=== PATIENT | female | born 1960 | race Caucasian/White ===

== ENCOUNTER 2020-10-26 15:47 | Inpatient (IN) ==
[2020-10-26] MEDS ORDERED: ONDANSETRON 4 MG/2 ML VIAL IV PRN (18:11)
[2020-10-26] MEDS ORDERED: DOCUSATE SODIUM 100 MG CAPSULE PO PRN (18:11)
[2020-10-26] MEDS ORDERED: DEXTROSE 50% 25 GM/50 ML VIAL IV PRN (18:11)
[2020-10-26] MEDS ORDERED: BISACODYL 5 MG TABLET PO PRN (18:11)
[2020-10-26] MEDS ORDERED: GLUCAGON 1 MG VIAL IM PRN (18:11)
[2020-10-26] MEDS ORDERED: SODIUM CHLORIDE 0.9% 1,000 ML IV PRN (18:18)
[2020-10-26] MEDS ORDERED: POLYETHYLENE GLYCOL POWDER 17 GM PACK PO PRN (18:31)
[2020-10-26] MEDS: cefTRIAXone 1,000 MG in SODIUM CHLORIDE 0.9% 100 ML IV SCH (18:45)
[2020-10-26 18:51] LABS: Basophils % 0.2 % (0.0-0.8); Eosinophils % 0.6 % (0.00-10.9); Hematocrit 19.2 VOL% (35.7-47.0); Immature Granulocytes % 0.6 %; Immature Granulocytes Absolute 0.04 #; Lymphocytes # 0.8 10*3/uL (1.4-4.0); Lymphocytes % 11.9 % (21.3-54.2); Mean Corpuscular Volume 60.8 FL (87-102); Mean Platelet Volume 9.1 FL (9.6-12.0); Monocytes % 5.9 % (1.7-12.7); Neutrophils % 80.8 % (38.7-73.9); Platelet Count 432 T/CUMM (130-400); Red Blood Count 3.16 MC/CUMM (3.8-5.5); White Blood Count 6.5 T/CUMM (4-12)
[2020-10-26 19:05] LABS: Hemoglobin 4.8 GM/DL (12.0-16.0)
[2020-10-26 19:08] LABS: Alanine Aminotransferase 19 U/L (13-56); Albumin 3.6 G/DL (3.4-5.0); Alkaline Phosphatase 113 U/L (45-117); Aspartate Amino Transferase 13 U/L (0-37); Bilirubin,Total < 0.39 MG/DL (0.2-1.0); Blood Urea Nitrogen 16 MG/DL (7-18); Calcium 9.2 MG/DL (8.5-10.1); Carbon Dioxide 26 MMOL/L (21-32); Estimated Glom Filtration Rate 51 ML/MIN; Glucose 108 MG/DL (74-106); Osmolality,Calculated 276.7 MOS/KG (273-304); Potassium 3.7 MMOL/L (3.5-5.1); Sodium 138 MMOL/L (136-145); Total Protein 6.3 G/DL (6.4-8.2)
[2020-10-26] MEDS: ALBUTEROL/IPRATROPIUM 3 ML NEB RESP TX SCH (19:25)
[2020-10-26 20:10] LABS: % Iron Saturation 2.1 % (18-50); Ferritin 1.7 ng/ml (8-252)
[2020-10-26] MEDS: guaiFENesin/DM ER 600-30 MG TABLET PO SCH (20:21)
[2020-10-26] MEDS: PANTOPRAZOLE 40 MG VIAL IV SCH (20:21)
[2020-10-26] MEDS: AZITHROMYCIN INJ 500 MG in SODIUM CHLORIDE 0.9% 250 ML IV SCH (20:22)
[2020-10-27] MEDS: ALBUTEROL/IPRATROPIUM 3 ML NEB RESP TX SCH ×4 (00:30→19:52)
[2020-10-27 05:40] LABS: Basophils % 0.4 % (0.0-0.8); Eosinophils % 0.1 % (0.00-10.9)
[2020-10-27 06:07] LABS: Calcium 9.2 MG/DL (8.5-10.1); Osmolality,Calculated 282.1 MOS/KG (273-304); Potassium 4.2 MMOL/L (3.5-5.1); Risk Ratio 2.49; Thyroid Stimulating Hormone 2.12 uIU/ml (0.358-3.74)
[2020-10-27 06:34] LABS: Hematocrit 26.5 VOL% (35.7-47.0); Immature Granulocytes % 0.7 %; Immature Granulocytes Absolute 0.05 #; Lymphocytes # 0.9 10*3/uL (1.4-4.0); Mean Corpuscular HGB Conc 29.1 GM/DL (32-36); Mean Corpuscular Volume 70.9 FL (87-102); Mean Platelet Volume 9.1 FL (9.6-12.0); Monocytes % 5.1 % (1.7-12.7); Neutrophils % 81.7 % (38.7-73.9); Platelet Count 323 T/CUMM (130-400); Red Blood Count 3.74 MC/CUMM (3.8-5.5); Red Cell Distribution Width 32.4 % (9.3-17.3); White Blood Count 7.1 T/CUMM (4-12)
[2020-10-27 06:38] LABS: Hemoglobin 7.7 GM/DL (12.0-16.0)
[2020-10-27 07:00] LABS: Hypochromasia 2+; Microcytosis 1+; Ovalocytes Slight; Platelet Estimate Adequate
[2020-10-27] MEDS: guaiFENesin/DM ER 600-30 MG TABLET PO SCH ×2 (09:46→20:36)
[2020-10-27] MEDS: PANTOPRAZOLE 40 MG VIAL IV SCH ×2 (09:46→20:36)
[2020-10-27] MEDS: ACETAMINOPHEN 325 MG TABLET PO PRN (14:43)
[2020-10-27] MEDS ORDERED: SODIUM CHLORIDE 0.9% 1,000 ML IV PRN (15:20)
[2020-10-27] MEDS: cefTRIAXone 1,000 MG in SODIUM CHLORIDE 0.9% 100 ML IV SCH (17:31)
[2020-10-27] MEDS: AZITHROMYCIN INJ 500 MG in SODIUM CHLORIDE 0.9% 250 ML IV SCH (21:20)
[2020-10-28] MEDS: ALBUTEROL/IPRATROPIUM 3 ML NEB RESP TX SCH ×2 (00:09→07:00)
[2020-10-28] MEDS: ACETAMINOPHEN 325 MG TABLET PO PRN (01:32)
[2020-10-28 06:10] LABS: Potassium 3.7 MMOL/L (3.5-5.1)
[2020-10-28 06:27] LABS: Basophils % 0.3 % (0.0-0.8); Eosinophils # 0.1 10*3/uL (0.0-0.87); Eosinophils % 1.5 % (0.00-10.9); Hematocrit 29.4 VOL% (35.7-47.0); Hemoglobin 8.4 GM/DL (12.0-16.0); Immature Granulocytes % 0.4 %; Immature Granulocytes Absolute 0.03 #; Lymphocytes # 0.9 10*3/uL (1.4-4.0); Lymphocytes % 12.7 % (21.3-54.2); Mean Corpuscular HGB Conc 28.6 GM/DL (32-36); Mean Corpuscular Volume 72.4 FL (87-102); Mean Platelet Volume 9.2 FL (9.6-12.0); Monocytes % 6.9 % (1.7-12.7); Neutrophils % 78.2 % (38.7-73.9); Platelet Count 270 T/CUMM (130-400); Red Blood Count 4.06 MC/CUMM (3.8-5.5); Red Cell Distribution Width 30.1 % (9.3-17.3); White Blood Count 7.3 T/CUMM (4-12)
[2020-10-28 06:30] LABS: Anisocytosis 2+; Platelet Estimate Normal; Polychromasia Slight
[2020-10-28] MEDS ORDERED: LACTATED RINGERS 1,000 ML IV SCH (07:00)
[2020-10-28] MEDS: PANTOPRAZOLE 40 MG VIAL IV SCH (09:43)
[2020-10-28] MEDS: guaiFENesin/DM ER 600-30 MG TABLET PO SCH (09:43)
[2020-10-28 12:29] VITALS: BP 151/90
== END 2020-10-28 13:39 | disposition home or self-care (01) | DRG 811 ==
LOC: N.4E → SUATTDRO 17:03
PROVIDERS: ADMIT Internal Medicine; ATTEND Internal Medicine

== ENCOUNTER 2022-04-19 18:46 | Observation (INO) ==
[2022-04-19 20:57] LABS: Alanine Aminotransferase 17 U/L (13-56); Alkaline Phosphatase 91 U/L (45-117); Aspartate Amino Transferase 12 U/L (0-37); Bilirubin,Total < 0.39 MG/DL (0.20-1.00); Blood Urea Nitrogen 20 MG/DL (7-18); Calcium 9.6 MG/DL (8.5-10.1); Carbon Dioxide 25 MMOL/L (21-32); Chloride 105 MMOL/L (98-107); Glucose 101 MG/DL (74-106); Potassium 3.7 MMOL/L (3.5-5.1); Sodium 136 MMOL/L (136-145); Total Protein 6.6 G/DL (6.4-8.2)
[2022-04-19 21:01] LABS: Basophils % 0.1 % (0.0-0.8); Eosinophils % 0.1 % (0.00-10.9); Hematocrit 19.7 VOL% (35.7-47.0); Immature Granulocytes % 0.4 %; Immature Granulocytes Absolute 0.03 #; Lymphocytes # 0.6 10*3/uL (1.4-4.0); Lymphocytes % 9.2 % (21.3-54.2); Mean Corpuscular HGB Conc 22.8 GM/DL (32-36); Mean Corpuscular Volume 61.6 FL (87-102); Mean Platelet Volume 9.2 FL (9.6-12.0); Monocytes # 0.4 10*3/uL (0.11-0.8); Monocytes % 5.3 % (1.7-12.7); Neutrophils % 84.9 % (38.7-73.9); Platelet Count 452 T/CUMM (130-400); White Blood Count 6.8 T/CUMM (4-12)
[2022-04-19 21:15] LABS: Hemoglobin 4.5 GM/DL (12.0-16.0)
[2022-04-19 21:16] LABS: PT Patient Result 10.9 SECS (10.1-12.1)
[2022-04-19 21:17] LABS: Anisocytosis 1+; Hypochromia 1+; Platelet Estimate Increased
[2022-04-19] MEDS ORDERED: SODIUM CHLORIDE 0.9% 1,000 ML IV PRN (21:17)
[2022-04-19 21:18] LABS: Macrocytosis 1+; Microcytosis 1+; Ovalocytes Slight; Polychromasia Slight; Tear Drop Cells Slight
[2022-04-19] MEDS ORDERED: ACETAMINOPHEN 325 MG TABLET PO PRN (21:41)
[2022-04-19] MEDS ORDERED: ONDANSETRON 4 MG/2 ML VIAL IV PRN (21:41)
[2022-04-19] MEDS ORDERED: SODIUM CHLORIDE 0.9% 1,000 ML IV SCH (22:00)
[2022-04-20] MEDS: ALBUTEROL/IPRATROPIUM 3 ML NEB RESP TX SCH ×4 (00:38→19:30)
[2022-04-20 07:41] LABS: Basophils % 0.4 % (0.0-0.8); Eosinophils % 0.4 % (0.00-10.9); Hematocrit 25.7 VOL% (35.7-47.0); Immature Granulocytes % 0.4 %; Immature Granulocytes Absolute 0.02 #; Lymphocytes # 0.8 10*3/uL (1.4-4.0); Mean Corpuscular HGB Conc 27.2 GM/DL (32-36); Mean Corpuscular Volume 68.5 FL (87-102); Mean Platelet Volume 8.7 FL (9.6-12.0); Monocytes # 0.3 10*3/uL (0.11-0.8); Monocytes % 6.8 % (1.7-12.7); Platelet Count 317 T/CUMM (130-400); Red Blood Count 3.75 MC/CUMM (3.8-5.5); Red Cell Distribution Width 27.9 % (9.3-17.3); White Blood Count 4.9 T/CUMM (4-12)
[2022-04-20 07:47] LABS: Calcium 9.3 MG/DL (8.5-10.1); Osmolality,Calculated 279.4 MOS/KG (273-304); Potassium 3.5 MMOL/L (3.5-5.1)
[2022-04-20 07:48] LABS: Bacteria,Urine Occasional /HPF (Few); Hyaline Casts,Urine 5 /LPF (0-3); Mucus,Urine Occasional /LPF (Occasional); RBC,Urine 2 /HPF (0-4); Squamous Epithelial Cell,Urine Occasional /HPF (0-10)
[2022-04-20 07:49] LABS: Urine Color Yellow (Yellow)
[2022-04-20 07:50] LABS: Bilirubin,Urine Negative (Negative); Blood, Urine Negative (Negative); Glucose,Urine (UA) Negative (Negative); Ketones,Urine Negative (Negative); Nitrite,Urine Negative (Negative); Protein,Urine Negative (Negative); Urine Appearance Clear (Clear); Urine Specific Gravity 1.025 (1.001-1.035); Urine Urobilinogen 0.2 eU/dL (<2.0); Urine pH 5.5 (4.5-8.0)
[2022-04-20 08:00] LABS: Albumin 3.4 G/DL (3.4-5.0); Bilirubin,Total 0.7 MG/DL (0.20-1.00); Calcium 9.5 MG/DL (8.5-10.1); Osmolality,Calculated 279.4 MOS/KG (273-304); Potassium 3.5 MMOL/L (3.5-5.1); Total Protein 5.9 G/DL (6.4-8.2)
[2022-04-20 08:03] LABS: Anisocytosis 1+; Hypochromia 1+; Microcytosis 1+
[2022-04-20 08:04] LABS: Ovalocytes Few; Polychromasia Slight; Tear Drop Cells Slight
[2022-04-20 08:05] LABS: Platelet Estimate Normal
[2022-04-20] MEDS ORDERED: PANTOPRAZOLE 40 MG TABLET PO SCH (09:00)
[2022-04-20 09:27] LABS: Folate 12.73 NG/ML (5.38-24.0)
[2022-04-20 09:31] LABS: % Iron Saturation 5.1 % (18-50); Ferritin 1.4 ng/mL (8-252)
[2022-04-20] MEDS: OXcarbazepine 300 MG TABLET PO SCH ×2 (09:53→20:17)
[2022-04-20] MEDS: SERTRALINE 100 MG TABLET PO SCH (09:53)
[2022-04-20] MEDS: PANTOPRAZOLE 40 MG TABLET PO SCH ×2 (09:53→20:17)
[2022-04-20] MEDS: FERROUS SULFATE 325 MG TABLET PO SCH (20:17)
[2022-04-20 20:57] LABS: Hematocrit 28.6 VOL% (35.7-47.0)
[2022-04-20] MEDS ORDERED: LURASIDONE 40 MG TABLET PO SCH (21:00)
[2022-04-20] MEDS ORDERED: traZODone 50 MG TABLET PO SCH (21:00)
[2022-04-21] MEDS: ALBUTEROL/IPRATROPIUM 3 ML NEB RESP TX SCH ×2 (00:15→07:50)
[2022-04-21 07:00] LABS: Calcium 9.2 MG/DL (8.5-10.1); Osmolality,Calculated 286.7 MOS/KG (273-304)
[2022-04-21 07:13] LABS: Basophils % 0.6 % (0.0-0.8); Eosinophils % 0.9 % (0.00-10.9); Hematocrit 29.2 VOL% (35.7-47.0); Hemoglobin 8.2 GM/DL (12.0-16.0); Immature Granulocytes % 0.3 %; Immature Granulocytes Absolute 0.01 #; Lymphocytes # 0.8 10*3/uL (1.4-4.0); Lymphocytes % 22.4 % (21.3-54.2); Mean Corpuscular HGB Conc 28.1 GM/DL (32-36); Mean Corpuscular Volume 70.7 FL (87-102); Monocytes # 0.3 10*3/uL (0.11-0.8); Monocytes % 9.6 % (1.7-12.7); Neutrophils % 66.2 % (38.7-73.9); Platelet Count 241 T/CUMM (130-400); Red Blood Count 4.13 MC/CUMM (3.8-5.5); Red Cell Distribution Width 25.4 % (9.3-17.3); White Blood Count 3.4 T/CUMM (4-12)
[2022-04-21 07:23] LABS: Anisocytosis 1+; Ovalocytes Few; Platelet Estimate Normal
[2022-04-21] MEDS: PANTOPRAZOLE 40 MG TABLET PO SCH (09:40)
[2022-04-21] MEDS: SERTRALINE 100 MG TABLET PO SCH (09:40)
[2022-04-21] MEDS: FERROUS SULFATE 325 MG TABLET PO SCH (09:41)
[2022-04-21] MEDS: OXcarbazepine 300 MG TABLET PO SCH (09:41)
[2022-04-21 11:42] VITALS: BP 153/84
[2022-04-22] MEDS ORDERED: POLYETHYLENE GLYCOL POWDER 255 GM BOTTLE PO ONE (15:00)
[2022-04-23] MEDS ORDERED: POLYETHYLENE GLYCOL POWDER 255 GM BOTTLE PO ONE (05:00)
== END 2022-04-21 11:29 | disposition home or self-care (01) ==
LOC: N.ED 18:46 → N.EDINP 18:46 → SUATTDRO 21:41 → N.5E 23:18
PROVIDERS: ADMIT Internal Medicine; ATTEND Internal Medicine